=== PATIENT | female | born 1955 | race Caucasian/White ===

== ENCOUNTER 2021-07-08 16:01 | Inpatient (IN) ==
[2021-07-08] MEDS ORDERED: Heparin DRIP 25,000 UNITS BAG 25,000 UNITS/500 ML BAG IV SCH ×2 (16:15→17:30)
[2021-07-08] MEDS ORDERED: Heparin 5000 UNITS/ML 1 mL VIAL IV SCH ×2 (17:00→18:00)
[2021-07-08] MEDS ORDERED: Nicotine GUM 2MG FRUIT FLAVOR PO PRN (18:30)
[2021-07-08 19:15] LABS: Troponin I 0.15 ng/mL (<0.03)
[2021-07-08 19:22] LABS: Cholesterol 201 mg/dL; HDL Cholesterol 54.6 mg/dL; LDL Cholesterol 129 mg/dL; Triglycerides 87 mg/dL
[2021-07-08 22:26] LABS: Troponin I 0.15 ng/mL (<0.03)
[2021-07-09 01:43] LABS: Troponin I 0.14 ng/mL (<0.03)
[2021-07-09 07:26] LABS: Hematocrit 40 % (35-47); Hemoglobin 13.8 g/dL (12.0-16.0); Mean Corpuscular HGB Conc 34 g/dL (31-36); Mean Corpuscular Hemoglobin 31 pg (27-31); Mean Corpuscular Volume 89 fL (80-97); Mean Platelet Volume 9.2 fL (7.4-10.4); Platelet Count 137 10^3/uL (150-450); Red Blood Count 4.53 10^6 /uL (3.70-4.87); Red Cell Distribution Width 14 % (10-15); White Blood Count 4.9 10^3/uL (3.5-10.8)
[2021-07-09 08:20] LABS: Calcium 9.6 mg/dL (8.6-10.3); Magnesium 2.1 mg/dL (1.9-2.7); Potassium 4.2 mmol/L (3.5-5.0)
[2021-07-09 08:26] LABS: eGFR CKD-EPI 94.9 (>60)
[2021-07-09 08:32] LABS: Troponin I 0.09 ng/mL (<0.03)
[2021-07-09 10:16] LABS: TSH Ultra Thyroid Stim Horm 8.66 mcIU/mL (0.34-5.60)
[2021-07-09] MEDS ORDERED: Midazolam 5 mg/5 ml VIAL 1 mg/ml 5 ml VIAL (5 mg) ONE (15:40)
[2021-07-09] MEDS ORDERED: fentaNYL 100 mcg/2 ml 50 MCG/ML VIAL ONE (15:40)
[2021-07-09] MEDS ORDERED: Naloxone 0.4 mg VIAL 0.4 mg/ml 1 ml VIAL ONE (15:41)
[2021-07-09] MEDS ORDERED: Flumazenil 0.5 mg/5 ml 0.1 MG/ML 5 ml VIAL ONE (15:41)
[2021-07-09 18:28] LABS: Free T4 0.65 ng/dL (0.61-1.12)
[2021-07-10 11:41] VITALS: BP 139/71
== END 2021-07-10 15:00 | disposition home or self-care (01) | DRG 201 ==
LOC: ED 16:01 → MEDTELE 16:10 → EDHOLD 17:26 → SUATTDRO 17:26 → MEDTELE 20:03
PROVIDERS: ADMIT Hospitalist; ATTEND Student in an Organized Health Care Education/Training Program